=== PATIENT | female | born 1965 | race Caucasian/White ===

== ENCOUNTER 2024-06-11 15:55 | Emergency (ER) | payer OTHER, SELFPAY ==
[2024-06-11 15:59] VITALS: BP 175/85; PULSE 92; TEMP 36.1; O2SAT 100; BMI 27.1
--- NOTE | 2024-06-11 16:07 | ED.GENADUL1 ---
HPI HPI - General Adult General Chief complaint: Back Pain/Injury Stated complaint: BACK PAIN Time Seen by Provider: 06/11/24 15:56 Source: patient Mode of arrival: walk-in Limitations: no limitations History of Present Illness HPI narrative: Patient is a 58-year-old female who presents to the emergency department for the evaluation of low back pain that has been worsening over the last week. Patient states she had an injury over a month ago where she fell off the back of a 4 smiley and injured her back. She states she had back pain for about 1 week after the initial injury and her symptoms resolved. She reports pain worsening in the last week, she has some pain radiation into the left buttock and left posterior hip. She denies any abdominal pain, fevers, chills, nausea, vomiting, urinary symptoms or incontinence. She is ambulatory. She drove herself to the emergency department. No medications prior to arrival. She is not anticoagulated. She has not had any new injuries. Related Data Previous Rx's ?Medication ?Instructions ?Recorded ketorolac 10 mg tablet 10 mg PO TID PRN pain #10 tabs 06/11/24 methocarbamol 750 mg tablet 750 mg PO TID PRN pain #20 tabs 06/11/24 oxycodone-acetaminophen 5 mg-325 1 tab PO Q6H PRN pain 4 days #20 06/11/24 mg tablet (Percocet) tabs Allergies Allergy/AdvReac Type Severity Reaction Status Date / Time codeine AdvReac Mild Anxiety Verified 06/11/24 15:59 erythromycin base AdvReac Mild Hives Verified 06/11/24 15:59 Opioid HPI Opioid Management Most Recent Opioid Data: Last Pain Scale 0 06/11/24 18:13 Last ED Pain Assessment 06/11/24 18:13 Last MAR Pain Assessment 06/11/24 16:13 Review of Systems ROS Constitutional Denies: fever or chills Ears, nose, mouth, and throat Denies: throat pain or nasal congestion Respiratory Denies: shortness of breath Gastrointestinal Denies: abdominal pain, nausea or vomiting Musculoskeletal Reports: back pain; Denies: neck pain or extremity pain Integumentary/Breast Denies: rash Neurological Denies: headache Hematologic/Lymphatic Denies: easy bruising or easy bleeding Exam Narrative Exam Narrative: Gen.: Awake, alert, in no distress Head: Normocephalic, atraumatic ENT: Moist mucous membranes Respiratory: No respiratory distress Back: No bony tenderness of the midline T-spine or L-spine. No obvious deformity or step-off. No ecchymosis or abrasions noted. Diffuse tenderness in the left paraspinal muscles of the lumbar spine and left posterior hip. Gastrointestinal: Abdomen is soft, nondistended and nontender to palpation Extremities: Moves extremities equally, normal dorsiflexion and plantarflexion of the lower extremities, normal hip flexion bilaterally. No decrease in sensation to the medial thighs Psych: Normal mood and affect Neuro: No focal neuro deficit Skin: Warm, dry, intact Constitutional Vital Signs, click to edit/add: Last Vital Signs Temp 97 F L 06/11/24 15:59 Pulse 92 H 06/11/24 15:59 Resp 18 06/11/24 15:59 BP 175/85 H 06/11/24 15:59 Pulse Ox 100 06/11/24 15:59 O2 Del Method Room Air 06/11/24 15:59 Course Vital Signs Vital signs: Vital Signs Temperature 97 F L 06/11/24 15:59 Pulse Rate 92 H 06/11/24 15:59 Respiratory Rate 18 06/11/24 15:59 Blood Pressure 175/85 H 06/11/24 15:59 Pulse Oximetry 100 06/11/24 15:59 Oxygen Delivery Method Room Air 06/11/24 15:59 Temperature 97 F L 06/11/24 15:59 Pulse Rate 92 H 06/11/24 15:59 Respiratory Rate 18 06/11/24 15:59 Blood Pressure 175/85 H 06/11/24 15:59 Pulse Oximetry 100 06/11/24 15:59 Oxygen Delivery Method Room Air 06/11/24 15:59 Medical Decision Making MDM Narrative Medical decision making narrative: CT of the lumbar spine shows an angulated S3 sacral fracture. The remainder of the study is unremarkable. Patient was treated for symptoms in the ER, she has a normal neuroexam. She was encouraged to apply ice to the area, follow-up with orthopedics/spinal surgery and return to the ER if symptoms change or worsen. She was given follow-up, neurovascularly intact at discharge. SUPERVISED APC VISIT, PHYSICIAN ATTESTATION: Based on the medical record the care appears appropriate. ? Medical Records Medical records reviewed: Yes I reviewed the patient's medical records Imaging Data CT scan - pelvis: Attestation: I have reviewed the pertinent imaging results. Radiologist's impression: ITS Impressions Lumbar Spine CT 06/11/24 16:28 IMPRESSION: 1. Acute angulated fracture of the S3 sacrum at the inferior extent of the [id number]. 2. No CT evidence of acute osseous abnormality of the lumbar spine. 3. Degenerative grade 1 anterolisthesis of L5 on S1 due to bilateral chronic L5 pars defects. 4. Numerous subcentimeter nonobstructing bilateral kidney stones. Electronically authenticated by: TERRY CORBIN Date: 06/11/2024 17:40 Discharge Plan Discharge Stand Alone Forms: Portal Instructions Chief Complaint: Back Pain/Injury Clinical Impression: Closed sacral fracture Patient Disposition: Home, Self-Care Time of Disposition Decision: 18:25 Condition: Good Prescriptions / Home Meds: New ketorolac 10 mg tablet 10 mg PO TID PRN (Reason: pain) Qty: 10 0RF oxycodone-acetaminophen [Percocet] 5-325 mg tablet 1 tab PO Q6H PRN (Reason: pain) 4 Days Qty: 20 0RF Rx Instructions: DX: M54.5 methocarbamol 750 mg tablet 750 mg PO TID PRN (Reason: pain) Qty: 20 0RF Print Language: U[place]ayan Instructions: Sacral Fracture (ED) Referrals: Physician,Non-Staff, [Primary Care Provider] - 1 week Sushant Ag MD [Physician] - As soon as possible
[2024-06-11] MEDS: KETOROLAC TROMETHAMINE 60 MG/2 ML VIAL IM (16:13)
[2024-06-11] MEDS: ORPHENADRINE 60 MG/ 2 ML VIAL IM (16:13)
[2024-06-11] MEDS: OXYCODONE HCL/ACETAMINOPHEN 5MG/325MG 1 TAB PO (16:13)
--- NOTE | 2024-06-11 16:28 | CT_ITS ---
[address] [address] Patient Name: ANABELL HENRIQUEZ MRN: [id number] date: 1965 Sex: F Assigned Patient Location: ER Current Patient Location: [facility] Accession/Order Number: [id number] Exam Date: 06/11/2024 16:25 Report Date: 06/11/2024 17:40 At the request of: MANAS HUGGINS Procedure: CT lumbar spine wo con EXAM: CT lumbar spine wo con COMPARISON: None available. CLINICAL INDICATION: Low back pain TECHNIQUE: Multiplanar CT images of the lumbar spine without contrast. Dose reduction techniques were achieved by using automated exposure control and/or adjustment of mA and/or kV according to patient size and/or use of iterative reconstruction technique. FINDINGS: Acute angulated fracture of the S3 sacrum at the inferior extent of the [id number]-[id number]. No CT evidence of acute osseous abnormality of the lumbar spine. No prevertebral soft tissue swelling. Degenerative grade 1 anterolisthesis of L5 on S1 due to bilateral chronic L5 pars defects. Left foraminal narrowing L5-S1. No significant spinal canal stenosis. Numerous subcentimeter nonobstructing bilateral kidney stones. No evidence of obstructive uropathy at this time. CT/CT lumbar spine wo con IMPRESSION: 1. Acute angulated fracture of the S3 sacrum at the inferior extent of the [id number]-eojy. 2. No CT evidence of acute osseous abnormality of the lumbar spine. 3. Degenerative grade 1 anterolisthesis of L5 on S1 due to bilateral chronic L5 pars defects. 4. Numerous subcentimeter nonobstructing bilateral kidney stones. Electronically authenticated by: TERRY CORBIN Date: 06/11/2024 17:40
[2024-06-11 18:32] VITALS: BP 163/87; PULSE 75; O2SAT 100
== END 2024-06-11 18:32 | disposition home or self-care (01) ==
PROVIDERS: Emergency Provider Student in an Organized Health Care Education/Training Program
DX: S32.10XA Unspecified fracture of sacrum, initial encounter for closed fracture (principal); V86.55XA Driver of 3- or 4- wheeled all-terrain vehicle (ATV) injured in nontraffic accident, initial encounter
CPT/HCPCS: 72131; 96372; 99285; J1885; J2360

== ENCOUNTER 2025-05-21 14:43 | Outpatient (OUT) | payer OTHER, SELFPAY ==
--- NOTE | 2025-05-21 14:45 | MR_ITS ---
[place] [id number] Patient Name: ANABELL HENRIQUEZ MRN: [id number] date: 1965 Sex: F Assigned Patient Location: MRI Current Patient Location: MRI Accession/Order Number: [id number] Exam Date: 05/21/2025 16:00 Report Date: 05/21/2025 16:09 At the request of: FABIAN YOUNG Procedure: MR knee LT wo con MR knee LT wo con 05/21/2025 3:50 PM SIGNS AND SYMPTOMS: ^Acute Pain Left Knee PROTOCOL: Multiplanar multisequence MR images of the left knee were obtained without IV contrast COMPARISON: None. FINDINGS: Fluid: There is a moderate joint effusion. Medial compartment: Medial meniscus: There is an obliquely oriented tear of the posterior horn and body of the medial meniscus. No displaced fragments. Medial collateral ligament: Intact. Medial femoral condyle cartilage: There is mild partial thickness chondromalacia. Medial tibial plateau cartilage: There is mild partial thickness chondromalacia. Lateral compartment: Lateral meniscus: Intact. Lateral collateral ligament: Intact. Lateral femoral condyle cartilage: Preserved. Lateral tibial plateau cartilage: Preserved. Posterolateral corner: Popliteus tendon: Intact. Popliteofibular ligament: Intact. Proximal tibiofibular joint: Intact. Anterior compartment: Alignment: Normal. Quadriceps tendon: Intact. Patellar tendon: Intact. Retinaculum: Medial intact. Lateral intact. Patellar cartilage: There is partial thickness chondromalacia. Trochlea: There is partial thickness chondromalacia. . Plica: None. Hoffa fat pad: Normal. Intercondylar compartment: Anterior cruciate ligament: Intact. Posterior cruciate ligament: Intact. Bones (other than subarticular marrow): Normal. Muscles: Normal. Vessels: Normal. Nerves: Normal. MR/MR knee LT wo con IMPRESSION: There is an obliquely oriented tear of the posterior horn and body of the medial meniscus. No displaced fragments. There is partial thickness chondromalacia in the medial weightbearing compartment and patellofemoral joint space. There is a moderate joint effusion. Impression dictated by: Quentin Pandya M.D. 05/21/2025 4:09 PM Dictation Location: [place] [address] Electronically authenticated by: [id number] Y Date: 05/21/2025 16:09
== END 2025-05-21 14:44 | disposition home or self-care (01) ==
LOC: MRI 14:43
PROVIDERS: PCP Family Medicine; Visit Provider Physician Assistant
DX: M25.562 Pain in left knee (principal); S83.242A Other tear of medial meniscus, current injury, left knee, initial encounter; M25.462 Effusion, left knee
CPT/HCPCS: 73721